=== PATIENT | female | born 1975 | race Caucasian/White ===

== ENCOUNTER 2017-04-27 02:39 | Emergency (ER) | payer SELFPAY ==
[~2017-04-27] VITALS: Ht 165.1 cm; Wt 49.3 kg
[~2017-04-27 02:39] MED LIST: MACROBID100 MG PO; MULTIVITAMIN1 EAC2 PO; PYRIDIUM100 MG PO
[2017-04-27 02:43] VITALS: BP 111/71
[2017-04-27 02:58] LABS: ADD MIUA? YES; BILIRUBIN NEGATIVE; BLOOD LARGE; COLOR AMBER ((YELLOW)); GLUCOSE (STRIP) NEGATIVE; KETONES 5; LEUKOCYTES MODERATE; NITRITE POSITIVE; PROTEIN (STRIP) 100; SPECIFIC GRAVITY 1.031 (1.000-1.030); UROBILINOGEN 0.2 MG/DL (0.2-1.0)
[2017-04-27] MEDS ORDERED: CIPRO500 MG PO (03:00)
[2017-04-27 03:15] LABS: RED BLOOD CELLS 30-40 /HPF (0-5)
[2017-04-27 03:16] LABS: BACTERIA 3+ /HPF; CASTS NONE SEEN /LPF; CRYSTALS NONE SEEN; EPITHELIAL CELLS 1+ /HPF; MUCUS 1+ /LPF; UCUL ADDED? YES; WHITE BLOOD CELLS TNTC /HPF (0-5)
== END 2017-04-27 03:17 | disposition home or self-care (01) ==
LOC: EME 02:39
DX: N39.0 Urinary tract infection, site not specified (principal)
CPT/HCPCS: 81003; 87077; 87086; 87186; 99281; 99283